=== PATIENT | male | born 1975 | race Two or more races ===

== ENCOUNTER 2023-04-05 17:15 | Inpatient (IN) | payer OTHER ==
[2023-04-05 19:12] VITALS: BMI 25.1
[2023-04-05] MEDS ORDERED: chlordiazePOXIDE HCL 25 MG CAPSULE PO PRN (20:13)
[2023-04-05] MEDS ORDERED: chlordiazePOXIDE HCL 25 MG CAPSULE PO ONE (20:13)
[2023-04-05] MEDS ORDERED: METOPROLOL TARTRATE 25 MG TABLET (FP) PO ONE (20:18)
[2023-04-05] MEDS ORDERED: ONDANSETRON *ODT* 4 MG TABLET SL PRN (20:19)
[2023-04-05] MEDS ORDERED: MAGNESIUM HYDROX 2400MG/30ML ORAL SUSPENSION 30 ML CUP PO PRN (20:19)
[2023-04-05] MEDS ORDERED: MAG HYDROX/AL HYDROX/SIMETH 30 ML UNIT-DOSE CUP PO PRN (20:19)
[2023-04-05] MEDS ORDERED: BENZOCAINE/MENTHOL (CHLORASEPTIC ) LOZENGE MM PRN (20:19)
[2023-04-05] MEDS ORDERED: BISMUTH SUBSALICYLATE 524 MG/30 ML PO PRN (20:19)
[2023-04-05] MEDS ORDERED: BENZONATATE 200 MG CAPSULE PO PRN (20:19)
[2023-04-05] MEDS ORDERED: POLYETHYLENE GLYCOL (HEALTHYLAX) 3350 17 GM PACKET PO PRN (20:19)
[2023-04-05] MEDS ORDERED: DICYCLOMINE HCL 10 MG CAPSULE PO PRN (20:19)
[2023-04-05] MEDS ORDERED: guaiFENesin 600 MG TABLET.ER (FP) PO PRN (20:19)
[2023-04-05] MEDS ORDERED: P-EPHED 60MG/TRIPROLIDI 2.5MG TABLET PO PRN (20:19)
[2023-04-05] MEDS ORDERED: ACETAMINOPHEN 325 MG TABLET (FP) PO PRN (20:19)
[2023-04-05] MEDS ORDERED: LOPERAMIDE HCL 2 MG CAPSULE PO PRN (20:19)
[2023-04-05] MEDS ORDERED: IBUPROFEN 400 MG TABLET (FP) PO PRN (20:19)
[2023-04-05] MEDS ORDERED: NICOTINE POLACRILEX 2 MG GUM BUC PRN (20:19)
[2023-04-05] MEDS ORDERED: METOPROLOL TARTRATE 25 MG TABLET (FP) ONE (20:29)
[2023-04-05] MEDS ORDERED: chlordiazePOXIDE HCL 25 MG CAPSULE ONE (20:29)
[2023-04-05] MEDS: THIAMINE HCL 100 MG TABLET (FP) PO SCH (22:04)
[2023-04-05] MEDS: MELATONIN 5 MG TABLETS PO SCH (22:04)
[2023-04-05] MEDS: chlordiazePOXIDE HCL 25 MG CAPSULE PO SCH (22:04)
[2023-04-05] MEDS: IBUPROFEN 600 MG TABLET (FP) PO PRN (22:57)
[2023-04-05] MEDS: METHOCARBAMOL 500 MG TABLET PO PRN (22:58)
[2023-04-06] MEDS: chlordiazePOXIDE HCL 25 MG CAPSULE PO SCH ×4 (05:34→22:11)
[2023-04-06] MEDS: PRENATAL VITAMINS W/ FOLIC ACID TABLET (FP) PO SCH (10:14)
[2023-04-06 12:35] LABS: HEMATOCRIT 45.3 % (35.4-49); HEMOGLOBIN 15.3 GM/dL (11.7-16.9); MCH 30.4 pg (25.7-33.7); MCHC 33.7 g/dl (32.0-35.9); MEAN CELL VOLUME 90.1 fl (80-96); MEAN PLT VOLUME 10.2 fl (7.5-11.1); PLATELET COUNT 222 10^3/uL (134-434); RBC 5.03 M/mm3 (4.00-5.60); RDW 13.3 % (11.9-15.9); WHITE BLOOD COUNT 9.4 K/mm3 (4.0-10.0)
[2023-04-06 12:47] LABS: CHLORIDE 102 mmol/L (98-107); POTASSIUM 3.8 mmol/L (3.5-5.1); SODIUM 135 mmol/L (136-145)
[2023-04-06 12:53] LABS: ALBUMIN 3.6 g/dl (3.4-5.0); ANION GAP 7 mmol/L (4-13); BLOOD UREA NITROGEN 9.6 mg/dL (7-18); CALCIUM 8.9 mg/dL (8.5-10.1); CO2 25 mmol/L (21-32); GLUCOSE,RANDOM 118 mg/dL (74-106)
[2023-04-06 12:56] LABS: CREATININE 0.9 mg/dL (0.55-1.3); SGOT/AST 49 U/L (15-37); SGPT/ALT 30 U/L (13-61)
[2023-04-06 12:57] LABS: BILIRUBIN,TOTAL 1.2 mg/dL (0.2-1); TOT PROT 7.1 g/dl (6.4-8.2)
[2023-04-06 12:59] LABS: ALK PHOS 105 U/L (45-117)
[2023-04-06] MEDS: METHOCARBAMOL 500 MG TABLET PO PRN (18:55)
[2023-04-06] MEDS: MELATONIN 5 MG TABLETS PO SCH (22:10)
[2023-04-06] MEDS: THIAMINE HCL 100 MG TABLET (FP) PO SCH (22:11)
[2023-04-07] MEDS: chlordiazePOXIDE HCL 25 MG CAPSULE PO SCH ×4 (05:26→22:20)
[2023-04-07] MEDS: PRENATAL VITAMINS W/ FOLIC ACID TABLET (FP) PO SCH (10:11)
[2023-04-07] MEDS: METHOCARBAMOL 500 MG TABLET PO PRN ×2 (12:33→22:21)
[2023-04-07] MEDS: THIAMINE HCL 100 MG TABLET (FP) PO SCH (22:20)
[2023-04-07] MEDS: MELATONIN 5 MG TABLETS PO SCH (22:20)
[2023-04-08] MEDS ORDERED: chlordiazePOXIDE HCL 10 MG CAPSULE PO PRN
[2023-04-08] MEDS: chlordiazePOXIDE HCL 10 MG CAPSULE PO SCH ×4 (05:25→22:06)
[2023-04-08] MEDS: METHOCARBAMOL 500 MG TABLET PO PRN ×2 (06:19→22:07)
[2023-04-08] MEDS: IBUPROFEN 600 MG TABLET (FP) PO PRN ×2 (08:17→16:50)
[2023-04-08] MEDS ORDERED: BENZOCAINE 20 % GEL TUBE MM PRN (10:00)
[2023-04-08] MEDS: PRENATAL VITAMINS W/ FOLIC ACID TABLET (FP) PO SCH (10:12)
[2023-04-08] MEDS: THIAMINE HCL 100 MG TABLET (FP) PO SCH (22:07)
[2023-04-08] MEDS: MELATONIN 5 MG TABLETS PO SCH (22:07)
[2023-04-08] MEDS: AMOXICILLIN 500 MG CAPSULE (FP) PO SCH (22:07)
[2023-04-09] MEDS: chlordiazePOXIDE HCL 10 MG CAPSULE PO SCH ×2 (05:32→17:33)
[2023-04-09] MEDS: AMOXICILLIN 500 MG CAPSULE (FP) PO SCH ×3 (05:32→22:06)
[2023-04-09] MEDS: PRENATAL VITAMINS W/ FOLIC ACID TABLET (FP) PO SCH (10:09)
[2023-04-09] MEDS: IBUPROFEN 600 MG TABLET (FP) PO PRN (17:35)
[2023-04-09] MEDS: THIAMINE HCL 100 MG TABLET (FP) PO SCH (22:06)
[2023-04-09] MEDS: MELATONIN 5 MG TABLETS PO SCH (22:07)
[2023-04-09] MEDS: METHOCARBAMOL 500 MG TABLET PO PRN (22:07)
[2023-04-10] MEDS ORDERED: chlordiazePOXIDE HCL 10 MG CAPSULE PO ONE (05:00)
[2023-04-10] MEDS: AMOXICILLIN 500 MG CAPSULE (FP) PO SCH (07:22)
[2023-04-10 09:15] VITALS: BP 128/80; PULSE 79; RESP 19; TEMP 98.7
[2023-04-10] MEDS: PRENATAL VITAMINS W/ FOLIC ACID TABLET (FP) PO SCH (10:15)
== END 2023-04-10 11:26 | disposition home or self-care (01) | DRG 775 ==
LOC: YASAS 17:15 → Y3N 20:34
PROVIDERS: ADMIT Allergy & Immunology; ATTEND Surgery
PROC: HZ2ZZZZ Detoxification Services for Substance Abuse Treatment (ICD-10-PCS; principal; 2023-04-05)
DX: F10.230 Alcohol dependence with withdrawal, uncomplicated (principal); F17.210 Nicotine dependence, cigarettes, uncomplicated; K02.9 Dental caries, unspecified; K05.10 Chronic gingivitis, plaque induced; Z59.02 Unsheltered homelessness
CPT/HCPCS: 36415; 80053; 80307; 83036; 85027; 86780; 87635; 87811